=== PATIENT | male | born 2005 | race Caucasian/White ===

== ENCOUNTER 2024-11-08 05:44 | Emergency (ER) | payer OTHER ==
[~2024-11-08] VITALS: Ht 180.3 cm; Wt 87.3 kg
[2024-11-08 06:37] LABS: BASO # 0.1 10^3/uL (0.0-0.2); EOS # 0.1 10^3/uL (0.0-0.5); EOS % 2.8 % (0.0-3.0); HEMATOCRIT 39.5 % (42.0-52.0); HEMOGLOBIN 13.6 g/dl (13.5-17.5); LYMPH # 2.3 10^3/uL (1.5-5.0); MEAN CORPUSCULAR HEMOGLOBIN 30.8 pg (27.0-33.0); MEAN CORPUSCULAR HGB CONC 34.4 g/dl (32.0-36.5); MEAN CORPUSCULAR VOLUME 89.4 fl (80.0-96.0); MONO # 0.4 10^3/uL (0.0-0.8); MONO % 7.9 % (2.0-8.0); NEUTROPHILS # 2.2 10^3/uL (1.5-8.5); NEUTROPHILS % 42.1 % (36.0-66.0); PLATELET COUNT, AUTOMATED 292 10^3/uL (150-450); RED BLOOD COUNT 4.42 10^6/uL (4.30-6.10); WHITE BLOOD COUNT 5.1 10^3/uL (4.0-10.0)
[2024-11-08 07:05] LABS: CK-MB VALUE MASS < 1.0 NG/ML (<3.6)
[2024-11-08 07:06] LABS: BLOOD UREA NITROGEN 9 MG/DL (9-23); CALCIUM LEVEL 8.9 MG/DL (8.5-10.1); CARBON DIOXIDE LEVEL 24 MMOL/L (20-31); CHLORIDE LEVEL 108 MMOL/L (98-107); GLUCOSE, FASTING 86 MG/DL (60-100); POTASSIUM SERUM 4.5 MMOL/L (3.5-5.1); SODIUM LEVEL 142 MMOL/L (136-145)
[2024-11-08 07:11] LABS: CPK CREATINE PHOSPHOKINASE 103 U/L (46-171); MB/CK RELATIVE INDEX 0.97 (< OR =4)
[2024-11-08] MEDS: KETOROLAC 30 MG/ML 1ML VIAL IV ONE (07:40)
[2024-11-08 08:08] LABS: CK-MB VALUE MASS < 1.0 NG/ML (<3.6)
[2024-11-08 08:13] LABS: CPK CREATINE PHOSPHOKINASE 101 U/L (46-171); MB/CK RELATIVE INDEX 0.99 (< OR =4)
[2024-11-08 08:42] VITALS: BP 120/60; TEMP 97.8; O2SAT 98
== END 2024-11-08 08:46 | disposition home or self-care (01) ==
LOC: M ED 05:44
DX: R07.9 Chest pain, unspecified (principal); F17.200 Nicotine dependence, unspecified, uncomplicated; R00.1 Bradycardia, unspecified; M94.0 Chondrocostal junction syndrome [Tietze]
CPT/HCPCS: 71045; 80048; 82550; 82553; 84484; 85025; 85379; 85652; 93005; 93041; 94760; 96374; 99285; J1885

== ENCOUNTER 2025-06-20 08:41 | Day surgery (SDC) | payer OTHER ==
[~2025-06-20] VITALS: Ht 177.8 cm; Wt 86.5 kg
[~2025-06-20 08:41] MED LIST: BUPR-766 PO; CELE0.09 PO; HYDR-643 PO; IBUP-354 PO; LORA-1041 PO; SERT50TA29 PO
[2025-06-20] MEDS ORDERED: LIDOCAINE 2% 100 MG/5 ML SDV (FOR ANES.) As Ordered ONE (08:48)
[2025-06-20] MEDS ORDERED: KETOROLAC 30 MG/ML 1 ML VIAL As Ordered ONE (08:48)
[2025-06-20] MEDS ORDERED: MIDAZOLAM INJ 2 MG/2 ML VIAL As Ordered ONE (08:48)
[2025-06-20] MEDS ORDERED: dexAMETHasone 4 MG/ML 1 ML VIAL As Ordered ONE (08:48)
[2025-06-20] MEDS ORDERED: ONDANSETRON 4MG/2ML VIAL As Ordered ONE (08:48)
[2025-06-20] MEDS: LR 1,000 ML IV SCH (09:05)
[2025-06-20] MEDS ORDERED: dexmedeTOMIDine (4 MCG/ML) 200 MCG/50 ML BTL As Ordered ONE (10:32)
[2025-06-20] MEDS: ceFAZolin SOD 2 GM IV ONCE IV ONE (10:55)
[2025-06-20] MEDS: TRANEXAMIC ACID 100 MG/ML 10ML VIAL As Ordered ONE (11:15)
[2025-06-20] MEDS: TRANEXAMIC ACID 100 MG/ML 10ML VIAL IV ONE (11:35)
[2025-06-20] MEDS ORDERED: ACETAMINOPHEN 1000MG/100ML IV BAG As Ordered ONE (11:48)
[2025-06-20] MEDS ORDERED: HYDROMORPHONE HCL 0.5 MG/0.5 ML SYRINGE IV PRN (12:15)
[2025-06-20] MEDS ORDERED: MORPHINE 4 MG/ML 1 ML VIAL IV PRN (12:15)
[2025-06-20 13:44] VITALS: BP 123/63; TEMP 97.9; O2SAT 100
== END 2025-06-20 14:00 | disposition home or self-care (01) ==
LOC: M SDC 08:41
PROVIDERS: ATTEND Student in an Organized Health Care Education/Training Program
DX: S62.304A Unspecified fracture of fourth metacarpal bone, right hand, initial encounter for closed fracture (principal); W22.8XXA Striking against or struck by other objects, initial encounter; Y93.89 Activity, other specified; Y92.9 Unspecified place or not applicable; F41.9 Anxiety disorder, unspecified; F32.A Depression, unspecified; Z79.899 Other long term (current) drug therapy
CPT/HCPCS: 26615; 76000; C1713; J0131; J0665; J0688; J1100; J1885; J2250; J2405; J3010